=== PATIENT | male | born 1960 | race Caucasian/White ===

== ENCOUNTER 2017-09-04 06:29 | Day surgery (SDC) | payer OTHER, BC ==
[~2017-09-04] VITALS: Ht 177.8 cm; Wt 104.0 kg
[~2017-09-04 06:29] MED LIST: ACYCLOVIR800 MG PO; ATIVAN0.5 MG PO; CENTRUM SILVER1 EAC3; CENTRUM SILVER1 EAC3 PO; COMBIVENT RESPIM4 GM IH; COMBIVENT200 INHALA; DIVALPROEX SOD500 M1 PO; EPZICOM1 TABLET PO; EXCEDRIN EXTRA1 EACH PO; FENOFIBRATE160 M1 PO; FOLIC ACID1 MG PO; GABAPENTIN300 MG PO; GABAPENTIN800 MG PO; LOPERAMIDE2 MG PO; METOCLOPRAMIDE H5 MG PO; NORVIR100 MG PO; PRAVACHOL80 MG PO; PREZISTA800 MG PO; REGLAN5 MG PO; RESTORIL30 MG PO; SEROQUEL50 MG; SEROQUEL50 MG PO; SYMBICORT60 INHALAT IH; THIAMINE H100 MG/1 M IM; TRAZODONE HCL50 MG PO; TRICOR145 MG; TRICOR145 MG PO; TRIUMEQ TABLET1 EACH PO; TYLENOL EXTRA500 MG PO; TYLENOL PM EX-1 EACH PO; VITAMIN D1000 UNIT PO; [UNRECOGNIZED DRUG - OTHER]
[2017-09-04 07:17] VITALS: BP 129/76
[2017-09-04] MEDS ORDERED: PERCOCET 5/31 TABLET PO (09:12)
[2017-09-04 09:46] VITALS: BP 135/75
[2017-09-04 10:32] VITALS: BP 127/73
== END 2017-09-04 10:34 | disposition home or self-care (01) ==
LOC: SDC 06:29
DX: A63.0 Anogenital (venereal) warts (principal); L57.0 Actinic keratosis; J44.9 Chronic obstructive pulmonary disease, unspecified; B20 Human immunodeficiency virus [HIV] disease; F17.200 Nicotine dependence, unspecified, uncomplicated; B19.10 Unspecified viral hepatitis B without hepatic coma
CPT/HCPCS: 88305; 93005; J0690; J2250; J2405; J3010